=== PATIENT | female | born 1970 | race Caucasian/White ===

== ENCOUNTER 2020-11-21 18:08 | Emergency (ER) | payer MEDICAID ==
[~2020-11-21] VITALS: Ht 165.1 cm; Wt 70.3 kg
[~2020-11-21 18:08] MED LIST: COL100 PO; KEFLEX500 MG PO; LAC PO; NORCO1 TA2 PO
[2020-11-21 20:02] LABS: UA SPECIFIC GRAVITY 1.015 (1.005-1.035); microscopic required? YES; urine erythrocyte 2+ (NEGATIVE)
[2020-11-21 22:37] VITALS: BP 131/71
== END 2020-11-21 22:37 | disposition home or self-care (01) ==
LOC: ED 18:08
PROVIDERS: Emergency Medicine
DX: S39.012A Strain of muscle, fascia and tendon of lower back, initial encounter (principal); K59.00 Constipation, unspecified; Z90.49 Acquired absence of other specified parts of digestive tract; Z98.890 Other specified postprocedural states; X58.XXXA Exposure to other specified factors, initial encounter; Y93.89 Activity, other specified; Y92.89 Other specified places as the place of occurrence of the external cause; Y99.8 Other external cause status
CPT/HCPCS: J1885

== ENCOUNTER 2020-11-25 17:19 | Emergency (ER) | payer MEDICAID ==
[~2020-11-25] VITALS: Ht 154.9 cm; Wt 68.5 kg
[2020-11-25 19:14] VITALS: BP 146/64
== END 2020-11-25 19:14 | disposition home or self-care (01) ==
LOC: ED 17:19
DX: B02.8 Zoster with other complications (principal); L40.9 Psoriasis, unspecified; Z90.49 Acquired absence of other specified parts of digestive tract; Z98.890 Other specified postprocedural states

== ENCOUNTER 2020-12-20 16:21 | Emergency (ER) | payer MEDICAID, SELFPAY ==
[~2020-12-20] VITALS: Ht 152.4 cm; Wt 64.4 kg
[2020-12-20 16:47] VITALS: Ht 152.4 cm; Wt 64.4 kg
[2020-12-20] MEDS ORDERED: LOMOTIL1 TAB PO (17:39)
[2020-12-20] MEDS ORDERED: CIPRO500 MG PO (17:39)
[2020-12-20 17:44] LABS: CALCIUM 9.3 mg/dL (8.5-10.1); CARBON DIOXIDE 19.4 mmol/L (21-32); CHLORIDE SERUM 101 mmol/L (98-107); CREATININE SERUM 0.9 mg/dL (0.6-1.0); GFR1 > 60 mL/min; GLUCOSE SERUM 121 mg/dL (74-106); POTASSIUM SERUM 3.6 mmol/L (3.5-5.1); SODIUM SERUM 137 mmol/L (136-145)
[2020-12-20 17:49] LABS: ALBUMIN 4.1 g/dL (3.4-5.0); ALKALINE PHOSPHATASE 120 U/L (46-116); ALT/SGPT 77 U/L (14-59); AMYLASE 39 U/L (25-115); AST/SGOT 51 U/L (15-37); BILIRUBIN TOTAL 0.2 mg/dL (0.20-1.00); LIPASE 83 IU/L (73-393); PLATELET COUNT 352 x10^3mcL (179-408)
[2020-12-20 17:51] LABS: TOTAL PROTEIN, SERUM 8.8 g/dL (6.4-8.2)
[2020-12-20 17:57] LABS: BASOPHIL % 3.5 % (0.2-1.3); RED CELL DISTRIBUTION WIDTH 21.6 % (12.3-17.7)
[2020-12-20 18:58] VITALS: BP 115/74
== END 2020-12-20 18:58 | disposition home or self-care (01) ==
LOC: ED 16:21
PROVIDERS: Emergency Medicine
DX: B34.9 Viral infection, unspecified (principal)
CPT/HCPCS: J1885; J7030